=== PATIENT | female | born 2000 | race African-American/Black ===

== ENCOUNTER 2018-12-10 21:59 | Emergency (ER) | payer BC ==
[~2018-12-10] VITALS: Ht 167.6 cm; Wt 63.5 kg
[2018-12-11] MEDS ORDERED: MOBIC15 MG PO (00:02)
[2018-12-11] MEDS ORDERED: CYCLOBENZAPRINE5 MG PO (00:02)
[2018-12-11 00:12] VITALS: BP 123/96
== END 2018-12-11 00:13 | disposition home or self-care (01) ==
LOC: ER 21:59
DX: S09.8XXA Other specified injuries of head, initial encounter (principal); V89.2XXA Person injured in unspecified motor-vehicle accident, traffic, initial encounter; Y93.89 Activity, other specified; Y92.89 Other specified places as the place of occurrence of the external cause; Y99.8 Other external cause status